=== PATIENT | male | born 1960 | race Caucasian/White ===

== ENCOUNTER 2016-10-02 09:20 | Day surgery (SDC) | payer MEDICARE, MEDICAID ==
[2016-10-02] VITALS (13 sets, daily range): BP systolic 118–144; BP diastolic 64–84; PULSE 77–87; RESP 13–18; O2SAT 96–100
[~2016-10-02] VITALS: Ht 157.5 cm; Wt 57.3 kg
[~2016-10-02 09:20] MED LIST: DIPHEN PO; LIDO PO; MAGN400T23 PO; MYLANTA PO; ONDA-54 PO; OXYC5TAB72 PO; POLY17PO6 PO; SENN-133 PO; triple swish PO
--- NOTE | 2016-10-02 10:32 | NUR ---
CABRERA ADMIT 56 YR OLD MALE ADMITTED TO [facility] FOR PORTACATH REMOVAL TODAY. IV STARTED AND QUESTIONS ANSWERED. DR ELDRIDGE HERE AND CONSENT WAS SIGNED. PT STATES HE TAKES NO MEDICATIONS.
[2016-10-02] MEDS ORDERED: 0.9% Sodium Chloride 1,000 ML ONE (10:52)
[2016-10-02] MEDS ORDERED: CeFAZolin 1 Gm/50 mL D5W Duplex Bag IV ONE (10:52)
[2016-10-02] MEDS ORDERED: Heparin 5,000 Units/500 mL NS Premix IV ONE (11:05)
[2016-10-02] MEDS ORDERED: 0.9% Sodium Chloride 250 ML ONE (11:09)
[2016-10-02] MEDS ORDERED: Bupivacaine-MPF 0.5% 30 mL Inj ONE (11:10)
[2016-10-02] MEDS ORDERED: fentaNYL-PF 50 mCg/mL 2 mL Inj ONE (11:25)
[2016-10-02] MEDS ORDERED: Lidocaine 1%-Epi 1:100,000 20 mL Inj ONE (11:53)
--- NOTE | 2016-10-02 15:40 | NUR ---
CABRERA DISCHARGE PT RETURNED FROM [facility] AT 1220. VSS. DRSG TO WOUND SITE WAS CHANGED BY [employer] DIRECTOR PER REQUEST DR ELDRIDGE. WOUND CARE F/U APPT WAS MADE FOR Wednesday10/05/16 AT 1PM. ALL DISCHARGE INSTRUCTIONS WERE REVIEWED WITH PT AND SPLICING MACHINE OPERATOR [employer], RANGER. THEY ARE TO WATCH CLOSELY FOR S/S SEPSIS AND ALL THE SYMPTOMS WERE REVIEWED WITH PT AND FRIEND. PT IS TO START THE ANTIBIOTIC HE HAS AT [facility]. HE WAS DISCHARGED AT 1530 WITH SPLICING MACHINE OPERATOR [employer] IN STABLE CONDITION.
--- NOTE | 2016-10-05 15:41 | DRSVH ---
PROCEDURE: INVASIVE IV LINE SUBCUTANEOUS 1 Removal of the existing right-sided Port-A-Cath. INDICATIONS: INFECTION TECHNIQUE: The indications, alternatives, benefits, risks, and complications of the procedure were e xplained to the patient and any family members present. Informed written consent was obtained and pl aced in the chart. The patient was brought to the angiography suite, and conscious sedation was admi nistered intravenously by correction staff, while continuous cardiorespiratory monitoring was pe rformed. Maximum sterile barrier technique was employed per standard protocol, including hand hygiene, cap, ma sk, sterile gown and gloves, and 2% chlorhexidine. One percent lidocaine was used to anesthetize the skin around the area of interest. A small incision was made over the Port-A-Cath device. The device w as removed. Hemostasis was achieved. Iodoform gauze was packed into the Port-A-Cath pocket and a dres sing was applied. The patient tolerated the procedure without difficulty and was in stable condition at the conclusion of the procedure. COMPARISON: [facility], XA, INVASIVE IV LINE SUBCUTANEOUS, 04/03/2016, 8:57. FINDINGS: There is purulent discharge around the Port-A-Cath device when the pocket was opened. At the end of t he procedure the pocket was dry and clean. IMPRESSION: Right chest wall Port-a-Cath removal as above. Dictated by: Adry Buchanan M.D. on 10/05/2016 at 15:40 Approved by: Adry Buchanan M.D. on 10/05/2016 at 15:40
== END 2016-10-02 23:59 | disposition home or self-care (01) ==
LOC: SOUO 09:20
PROVIDERS: ATTEND Radiology Vascular & Interventional Radiology
DX: T82.7XXA Infection and inflammatory reaction due to other cardiac and vascular devices, implants and grafts, initial encounter (principal); Z85.89 Personal history of malignant neoplasm of other organs and systems
CPT/HCPCS: 36590; 99152; J0690; J1644; J2250; J3010; J7050